=== PATIENT | male | born 1940 | race Caucasian/White ===

== ENCOUNTER 2017-03-11 18:20 | Emergency (ER) | payer MEDICARE, OTHER ==
[~2017-03-11] VITALS: Ht 165.1 cm; Wt 73.7 kg
[~2017-03-11 18:20] MED LIST: ALBU2.5V NEB; ALBU8.5H5 INH; AZIT600T4 PO; GABA300C10 PO; HYDR-3240 PO; LEVO137T2 PO; LISI-167 PO; POLY454P4 PO; PRED5TAB19 PO; PROP40TA PO; TAMS0.4C2 PO
[2017-03-11 19:16] LABS: WHITE BLOOD COUNT 9.1 x10^3/uL (3.4-10)
[2017-03-11 19:27] LABS: BLOOD UREA NITROGEN 14 mg/dL (7-18)
[2017-03-11 21:18] LABS: PATH.CAST-FLAG NOT PRESENT; SPERM-FLAG NOT PRESENT; SRC-FLAG NOT PRESENT; XTAL-FLAG NOT PRESENT; YLC-FLAG NOT PRESENT
[2017-03-12 00:21] VITALS: BP 110/78
== END 2017-03-12 01:50 | disposition home or self-care (01) ==
LOC: ED 22:18
DX: R33.9 Retention of urine, unspecified (principal); R31.0 Gross hematuria; N40.0 Benign prostatic hyperplasia without lower urinary tract symptoms; Z88.5 Allergy status to narcotic agent
CPT/HCPCS: 36415; 51702; 80048; 81001; 85025

== ENCOUNTER 2018-04-03 11:29 | Inpatient (IN) | payer MEDICARE, OTHER ==
[~2018-04-03] VITALS: Ht 167.6 cm; Wt 65.9 kg
[2018-04-03] MEDS ORDERED: FINA5TAB4 PO (11:55)
[2018-04-03] MEDS ORDERED: methylPREDNISolone SOD SUCC 125 MG/2 ML ONE (12:20)
[2018-04-03] MEDS ORDERED: SODIUM CHLORIDE FLUSH 10ML SYR IVF ONE (12:30)
[2018-04-03] MEDS ORDERED: methylPREDNISolone SOD SUCC 125 MG/2 ML IVP ONE (12:30)
[2018-04-03 12:35] LABS: BASOPHILS # (AUTO) 0.24 x10^3/uL (0-0.1); BASOPHILS % (AUTO) 2 % (0-1); EOSINOPHILS # (AUTO) 0.02 x10^3/uL (0-0.4); EOSINOPHILS % (AUTO) 0 % (1-7); LYMPHOCYTES # (AUTO) 0.76 x10^3/uL (1-3.4); LYMPHOCYTES % (AUTO) 7 % (22-44); MD NO; MEAN CORPUSCULAR HEMOGLOBIN 32.3 pg (27.5-34.5); MEAN CORPUSCULAR HGB CONC 33.2 g/dL (33.2-36.2); MEAN CORPUSCULAR VOLUME 97.2 fL (81-97); MEAN PLATELET VOLUME 7.3 fL (7.4-10.4); MONOCYTES # (AUTO) 0.63 x10^3/uL (0.2-0.8); MONOCYTES % (AUTO) 6 % (2-9); NEUTROPHILS # (AUTO) 9.77 x10^3/uL (1.8-6.8); NEUTROPHILS % (AUTO) 86 % (42-75); PLATELET COUNT 141 x10^3/uL (130-400); RED BLOOD COUNT 5.16 x10^6/uL (4.38-5.82); RED CELL DISTRIBUTION WIDTH 13.8 % (9.4-14.8)
[2018-04-03 12:48] LABS: ALBUMIN 2.4 g/dL (3.4-5.0); ANION GAP 5 mmol/L (5-15); CHLORIDE 94 mmol/L (98-107)
[2018-04-03] MEDS ORDERED: MORPHINE SULFATE 4 MG/ML, 1ML ONE (12:51)
[2018-04-03 12:54] LABS: CREATININE 1.22 mg/dL (0.7-1.3)
[2018-04-03 12:56] LABS: TROPONIN I 0.369 ng/mL (0.000-0.045)
[2018-04-03] MEDS ORDERED: ASPIRIN 81 MG TABLET CHEW PO ONE (13:30)
[2018-04-03] MEDS ORDERED: ASPIRIN 81 MG TABLET CHEW ONE (14:00)
[2018-04-03] MEDS ORDERED: GUAIFENESIN/DM 200-20MG, 10ML UDC PO PRN (14:30)
[2018-04-03] MEDS ORDERED: ENOXAPARIN 40 MG/0.4 ML SQ SCH (14:30)
[2018-04-03] MEDS: NICOTINE 7 MG/24 HR PATCH.TD24 TD SCH (14:30)
[2018-04-03] MEDS ORDERED: ONDANSETRON ODT 4 MG PO PRN (14:30)
[2018-04-03] MEDS ORDERED: ACETAMINOPHEN 325 MG TABLET PO PRN (14:30)
[2018-04-03] MEDS ORDERED: CEFTRIAXONE 1,000 MG IVPB SCH (15:00)
[2018-04-03] MEDS ORDERED: ALBUTEROL SULFATE NEB PRN (15:00)
[2018-04-03] MEDS ORDERED: ALBUTEROL SULFATE 2.5 MG/3 ML HHN PRN (15:00)
[2018-04-03] MEDS ORDERED: OMNIPAQUE 350 MG/ML, 75ML BOTTLE ONE (15:26)
[2018-04-03] MEDS ORDERED: SODIUM CHLORIDE 0.9% 1,000ML IVBOLUS ONE (15:30)
[2018-04-03 16:28] VITALS: BP 118/73
[2018-04-03 16:28] LABS: TROPONIN I 0.336 ng/mL (0.000-0.045)
[2018-04-03] MEDS ORDERED: CEFTRIAXONE PMX 1GM/50ML 50 ML IV SCH (16:30)
[2018-04-03] MEDS: methylPREDNISolone SOD SUCC 40 MG/ML IV SCH (17:01)
[2018-04-03] MEDS: ALBUTEROL/IPRATROPIUM 2.5MG/0.5MG, 3 ML NPPB SCH ×2 (17:10→21:00)
[2018-04-03 20:00] VITALS: BP 118/70
[2018-04-03 23:01] LABS: TROPONIN I 0.251 ng/mL (0.000-0.045)
[2018-04-04] MEDS: methylPREDNISolone SOD SUCC 40 MG/ML IV SCH ×4 (01:06→23:04)
[2018-04-04] MEDS: ALBUTEROL/IPRATROPIUM 2.5MG/0.5MG, 3 ML NPPB SCH ×6 (01:14→22:39)
[2018-04-04 02:00] VITALS: BP 110/55
[2018-04-04 05:55] LABS: MEAN CORPUSCULAR HEMOGLOBIN 32.3 pg (27.5-34.5); MEAN CORPUSCULAR HGB CONC 33.5 g/dL (33.2-36.2); MEAN CORPUSCULAR VOLUME 96.5 fL (81-97); MEAN PLATELET VOLUME 7.8 fL (7.4-10.4); PLATELET COUNT 125 x10^3/uL (130-400); RED BLOOD COUNT 4.66 x10^6/uL (4.38-5.82); RED CELL DISTRIBUTION WIDTH 13.8 % (9.4-14.8)
[2018-04-04 06:05] LABS: ALANINE AMINOTRANSFERASE 20 U/L (12-78); ANION GAP 7 mmol/L (5-15); CALCIUM 9.3 mg/dL (8.5-10.1); CHLORIDE 100 mmol/L (98-107); CREATININE 1.12 mg/dL (0.7-1.3)
[2018-04-04 06:15] LABS: ALKALINE PHOSPHATASE 132 U/L (45-117); BILIRUBIN,TOTAL 0.3 mg/dL (0.2-1.0); THYROID STIMULATING HORMONE 0.089 mIU/L (0.358-3.740); TOTAL PROTEIN 5.5 g/dL (6.4-8.2)
[2018-04-04 06:41] LABS: MD YES
[2018-04-04 06:42] LABS: SEG#(MANUAL) 12.53 x10^3/uL (1.8-6.8); SEGS% (MANUAL) 83 % (42-75)
[2018-04-04 06:43] LABS: BAND#(MANUAL) 0.91 x10^3/uL; BANDS%(MANUAL) 6 % (0-7); LYMPHS% (MANUAL) 4 % (22-44); METAMYELOCYTES# (MANUAL) 0.45 x10^3/uL (0-0); METAMYELOCYTES% (MANUAL) 3 % (0-1); MONOS#(MANUAL) 0.45 x10^3/uL (0.3-2.7); MONOS% (MANUAL) 3 % (2-9); MYELOCYTES# (MANUAL) 0.15 x10^3/uL (0-0); MYELOCYTES% (MANUAL) 1 % (0-0)
[2018-04-04 06:50] LABS: <PLATELET ESTIMATE> DECREASED; <PLT MORPHOLOGY> NORMAL PLT MORPH; <RBC MORPHOLOGY> NORMAL
[2018-04-04 08:19] VITALS: BP 116/72
[2018-04-04] MEDS: FINASTERIDE 5 MG TABLET PO SCH (08:52)
[2018-04-04] MEDS: PROPRANOLOL 40 MG TABLET PO SCH (08:53)
[2018-04-04] MEDS: GABAPENTIN 300 MG CAPSULE PO SCH (08:53)
[2018-04-04] MEDS: TAMSULOSIN 0.4 MG CAP.ER.24H PO SCH (08:53)
[2018-04-04] MEDS: LEVOTHYROXINE 137 MCG TABLET PO SCH (08:53)
[2018-04-04] MEDS: POLYETHYLENE GLYCOL 17 GM PACKET PO SCH (08:56)
[2018-04-04] MEDS ORDERED: SENNA/DOCUSATE TABLET PO SCH (09:00)
[2018-04-04] MEDS ORDERED: SENNA/DOCUSATE TABLET PO PRN (09:00)
[2018-04-04 13:10] VITALS: BP 156/85
[2018-04-04] MEDS: NICOTINE 7 MG/24 HR PATCH.TD24 TD SCH (14:30)
[2018-04-04] MEDS: PIPERACILLIN/TAZO/PMX 3.375GM 50 ML IV SCH ×2 (16:12→23:04)
[2018-04-04 18:40] VITALS: BP 127/69
[2018-04-04] MEDS ORDERED: methylPREDNISolone SOD SUCC 125 MG/2 ML ONE (22:51)
[2018-04-05 00:59] VITALS: BP 126/77
[2018-04-05] MEDS: ALBUTEROL/IPRATROPIUM 2.5MG/0.5MG, 3 ML NPPB SCH ×6 (02:25→22:00)
[2018-04-05] MEDS: PIPERACILLIN/TAZO/PMX 3.375GM 50 ML IV SCH ×4 (05:43→23:21)
[2018-04-05] MEDS: methylPREDNISolone SOD SUCC 40 MG/ML IV SCH ×4 (05:43→23:21)
[2018-04-05 07:33] VITALS: BP 117/58
[2018-04-05] MEDS: FINASTERIDE 5 MG TABLET PO SCH (09:00)
[2018-04-05] MEDS: PROPRANOLOL 40 MG TABLET PO SCH (09:00)
[2018-04-05] MEDS: LEVOTHYROXINE 137 MCG TABLET PO SCH (09:00)
[2018-04-05] MEDS: POLYETHYLENE GLYCOL 17 GM PACKET PO SCH (09:00)
[2018-04-05] MEDS: TAMSULOSIN 0.4 MG CAP.ER.24H PO SCH (09:00)
[2018-04-05] MEDS: GABAPENTIN 300 MG CAPSULE PO SCH (09:00)
[2018-04-05] MEDS ORDERED: MIDAZOLAM 1 MG/ML, 5ML ONE ×2 (09:53→10:27)
[2018-04-05] MEDS ORDERED: FENTANYL PF 100 MCG/2ML ONE ×2 (09:53→10:27)
[2018-04-05] MEDS ORDERED: FENTANYL PF 100 MCG/2ML IVPush ONE (10:20)
[2018-04-05] MEDS ORDERED: MIDAZOLAM 1 MG/ML, 5ML IVPush ONE (10:20)
[2018-04-05] MEDS ORDERED: FLUMAZENIL 0.1 MG/1 ML, 5ML ONE (10:35)
[2018-04-05] MEDS ORDERED: NALOXONE 0.4 MG/ML, 1ML ONE (10:37)
[2018-04-05] MEDS ORDERED: NALOXONE 0.4 MG/ML, 1ML IVPush PRN (11:30)
[2018-04-05] MEDS ORDERED: FLUMAZENIL 0.1 MG/1 ML, 5ML IVPush ONE (11:30)
[2018-04-05] MEDS ORDERED: LIDOCAINE 1%, 50ML ONE (12:00)
[2018-04-05] MEDS ORDERED: LIDOCAINE 4% TOPICAL SOLUTION 50 ML ONE (12:00)
[2018-04-05] MEDS ORDERED: LIDOCAINE JELLY 2%, 30GM ONE (12:00)
[2018-04-05] MEDS: NICOTINE 7 MG/24 HR PATCH.TD24 TD SCH (14:30)
[2018-04-05] MEDS: SODIUM CHLORIDE 0.9% 1,000 ML IV SCH (16:45)
[2018-04-06] MEDS: ALBUTEROL/IPRATROPIUM 2.5MG/0.5MG, 3 ML NPPB SCH ×4 (01:50→23:20)
[2018-04-06] MEDS: methylPREDNISolone SOD SUCC 40 MG/ML IV SCH ×3 (06:02→18:46)
[2018-04-06] MEDS: PIPERACILLIN/TAZO/PMX 3.375GM 50 ML IV SCH ×3 (06:03→18:46)
[2018-04-06] MEDS ORDERED: LIDOCAINE-MPF 1%, 5ML ONE (08:38)
[2018-04-06 08:40] LABS: MEAN CORPUSCULAR HEMOGLOBIN 32.1 pg (27.5-34.5); MEAN CORPUSCULAR HGB CONC 33.5 g/dL (33.2-36.2); MEAN CORPUSCULAR VOLUME 95.8 fL (81-97); MEAN PLATELET VOLUME 7.5 fL (7.4-10.4); PLATELET COUNT 121 x10^3/uL (130-400); RED BLOOD COUNT 4.98 x10^6/uL (4.38-5.82); RED CELL DISTRIBUTION WIDTH 13.5 % (9.4-14.8)
[2018-04-06 08:42] LABS: ALANINE AMINOTRANSFERASE 28 U/L (12-78); ALBUMIN 2.4 g/dL (3.4-5.0); ANION GAP 5 mmol/L (5-15); CALCIUM 9.4 mg/dL (8.5-10.1); CHLORIDE 98 mmol/L (98-107); CREATININE 1.22 mg/dL (0.7-1.3)
[2018-04-06 08:52] LABS: ALKALINE PHOSPHATASE 159 U/L (45-117); BILIRUBIN,TOTAL 0.7 mg/dL (0.2-1.0)
[2018-04-06] MEDS: POLYETHYLENE GLYCOL 17 GM PACKET PO SCH (09:00)
[2018-04-06 09:22] LABS: MD YES
[2018-04-06 09:36] LABS: LYMPH#(MANUAL) 1.94 x10^3/uL (1-3.4); LYMPHS% (MANUAL) 10 % (22-44); MONOS#(MANUAL) 0.78 x10^3/uL (0.3-2.7); MONOS% (MANUAL) 4 % (2-9); SEG#(MANUAL) 16.68 x10^3/uL (1.8-6.8); SEGS% (MANUAL) 86 % (42-75)
[2018-04-06 09:37] LABS: <PLATELET ESTIMATE> DECREASED; <PLT MORPHOLOGY> NORMAL PLT MORPH; <RBC MORPHOLOGY> NORMAL
[2018-04-06] MEDS ORDERED: ENOXAPARIN 40 MG/0.4 ML SQ SCH (11:00)
[2018-04-06] MEDS: SODIUM CHLORIDE 0.9% 1,000 ML IV SCH (13:18)
[2018-04-06] MEDS: LEVOTHYROXINE 137 MCG TABLET PO SCH (13:52)
[2018-04-06] MEDS: TAMSULOSIN 0.4 MG CAP.ER.24H PO SCH (13:52)
[2018-04-06] MEDS: PROPRANOLOL 40 MG TABLET PO SCH (13:57)
[2018-04-06] MEDS: NICOTINE 7 MG/24 HR PATCH.TD24 TD SCH (14:30)
[2018-04-06] MEDS ORDERED: QUETIAPINE 25MG TABLET PO PRN (21:00)
[2018-04-06] MEDS ORDERED: FINASTERIDE 5 MG TABLET PO SCH (21:00)
[2018-04-06] MEDS ORDERED: MELATONIN 5 MG TABLET PO PRN (21:00)
[2018-04-06] MEDS ORDERED: GABAPENTIN 300 MG CAPSULE PO SCH (21:00)
[2018-04-07] MEDS ORDERED: DIPHENHYDRAMINE 50 MG/ML, 1ML IVPush ONE (01:00)
[2018-04-07] MEDS: methylPREDNISolone SOD SUCC 40 MG/ML IV SCH (01:07)
[2018-04-07] MEDS: PIPERACILLIN/TAZO/PMX 3.375GM 50 ML IV SCH (01:07)
[2018-04-07] MEDS: ALBUTEROL/IPRATROPIUM 2.5MG/0.5MG, 3 ML NPPB SCH (03:00)
[2018-04-07] MEDS ORDERED: METOCLOPRAMIDE 10MG TABLET PO PRN (03:30)
[2018-04-07] MEDS ORDERED: PROCHLORPERAZINE 5 MG/ML, 2ML IV PRN (03:30)
[2018-04-07] MEDS ORDERED: HALOPERIDOL 5 MG/ML IV PRN (03:30)
[2018-04-07] MEDS ORDERED: SODIUM CHLORIDE FLUSH 10ML SYR IVF PRN (03:30)
[2018-04-07] MEDS ORDERED: LORazepam 2 MG/ML, 1ML IV PRN ×2 (03:30)
[2018-04-07] MEDS ORDERED: HALOPERIDOL 0.5 MG TABLET PO PRN (03:30)
[2018-04-07] MEDS ORDERED: morphine SULFATE ORAL.CONC 20 MG/ML BC PRN (03:30)
[2018-04-07] MEDS ORDERED: morphine SULFATE ORAL.CONC 20 MG/ML PO PRN (03:30)
[2018-04-07] MEDS ORDERED: morphine SULFATE 10 MG/ML, 1ML IVPush PRN (03:30)
[2018-04-07] MEDS ORDERED: ATROPINE OPHTH SOLN 1%, 5ML BC PRN (03:30)
[2018-04-07] MEDS ORDERED: SCOPOLAMINE PATCH, 1.5MG PATCH.TD72 TD SCH (03:30)
[2018-04-07] MEDS ORDERED: ACETAMINOPHEN 650 MG SUPP PR PRN (03:30)
[2018-04-07] MEDS ORDERED: BISACODYL 5 MG EC TABLET PO PRN (03:30)
[2018-04-07] MEDS ORDERED: METOCLOPRAMIDE 5 MG/ML, 2ML IV PRN (03:30)
[2018-04-07] MEDS ORDERED: LORazepam INTENSOL 2 MG/ML BC PRN ×4 (03:30)
[2018-04-07] MEDS ORDERED: ONDANSETRON 2MG/ML, 2ML IV PRN (03:30)
[2018-04-07] MEDS ORDERED: ACETAMINOPHEN 325 MG TABLET PO PRN (03:30)
[2018-04-07] MEDS: LORazepam 2 MG/ML, 1ML IV PRN ×2 (03:54→05:50)
[2018-04-07] MEDS ORDERED: PROCHLORPERAZINE 10MG TABLET PO PRN (04:00)
[2018-04-07] MEDS ORDERED: SUCCINYLCHOLINE 20 MG/ML, 10ML ONE (06:54)
[2018-04-07] MEDS ORDERED: MIDAZOLAM 1 MG/ML, 5ML ONE (06:54)
[2018-04-07] MEDS ORDERED: PROPOFOL 10 MG/ML, 100ML IV ONE (06:54)
[2018-04-07] MEDS ORDERED: DOCUSATE 100 MG CAPSULE PO SCH (09:00)
[2018-04-07] MEDS ORDERED: SENNOSIDES 8.6 MG TABLET PO SCH (09:00)
[2018-04-07] MEDS ORDERED: MAGNESIUM HYDROXIDE 8%, 30ML UDC PO SCH (21:00)
== END 2018-04-07 11:14 | disposition expired | DRG 180 ==
LOC: ED 13:34 → SUATTDRO 14:01 → EDIP 14:29 → 4EST 16:24 → 4WST 17:31 → CCU 04-05 10:05
PROVIDERS: ADMIT Internal Medicine; ATTEND Internal Medicine
PROC: 0W993ZZ Drainage of Right Pleural Cavity, Percutaneous Approach (ICD-10-PCS; principal; 2018-04-05)
PROC: BB4BZZZ Ultrasonography of Pleura (ICD-10-PCS; 2018-04-05)
PROC: 0B9D8ZX Drainage of Right Middle Lung Lobe, Via Natural or Artificial Opening Endoscopic, Diagnostic (ICD-10-PCS; 2018-04-05)
PROC: 0BB58ZX Excision of Right Middle Lobe Bronchus, Via Natural or Artificial Opening Endoscopic, Diagnostic (ICD-10-PCS; 2018-04-05)
PROC: 0BB48ZX Excision of Right Upper Lobe Bronchus, Via Natural or Artificial Opening Endoscopic, Diagnostic (ICD-10-PCS; 2018-04-05)
DX: C34.11 Malignant neoplasm of upper lobe, right bronchus or lung (principal); J18.9 Pneumonia, unspecified organism; J96.21 Acute and chronic respiratory failure with hypoxia; E43 Unspecified severe protein-calorie malnutrition; G93.40 Encephalopathy, unspecified; J44.1 Chronic obstructive pulmonary disease with (acute) exacerbation; E87.2 Acidosis; J44.0 Chronic obstructive pulmonary disease with (acute) lower respiratory infection; J90 Pleural effusion, not elsewhere classified; J98.11 Atelectasis; C34.2 Malignant neoplasm of middle lobe, bronchus or lung; E03.9 Hypothyroidism, unspecified; F17.210 Nicotine dependence, cigarettes, uncomplicated; I07.1 Rheumatic tricuspid insufficiency; I10 Essential (primary) hypertension; I35.8 Other nonrheumatic aortic valve disorders; I95.9 Hypotension, unspecified; Z51.5 Encounter for palliative care; R91.8 Other nonspecific abnormal finding of lung field; N40.0 Benign prostatic hyperplasia without lower urinary tract symptoms; Z66 Do not resuscitate; Z80.1 Family history of malignant neoplasm of trachea, bronchus and lung; Z80.3 Family history of malignant neoplasm of breast; Z99.81 Dependence on supplemental oxygen; Z88.5 Allergy status to narcotic agent; Z68.23 Body mass index [BMI] 23.0-23.9, adult
CPT/HCPCS: 32555; 36415; 36600; 71045; 71260; 80048; 80053; 82040; 82803; 82945; 83605; 83615; 83735; 83880; 84145; 84157; 84443; 84484; 85025; 87015; 87040; 87070; 87081; 87102; 87106; 87116; 87205; 87206; 88112; 88305; 89051; 93005; 93306; 94640; 94667; 94668; 96374; 99285; G0378; J0696; J1650; J2250; J2270; J2310; J2543; J2704; J3010; J3490; J7620; Q9967; J0330; J1200; J2060; J2920; J2930; J7030